=== PATIENT | male | born 1995 | race Caucasian/White ===

== ENCOUNTER 2020-01-14 11:18 | Emergency (ER) | payer BC ==
[~2020-01-14] VITALS: Ht 185.4 cm; Wt 100.0 kg
[2020-01-14 11:28] VITALS: BP 130/86; TEMP 97.9
[2020-01-14] MEDS ORDERED: CRUTCHES MC ×3 (12:12→13:20)
[2020-01-14 12:51] VITALS: PULSE 75
== END 2020-01-14 12:51 | disposition home or self-care (01) ==
LOC: COL.ER 11:18
DX: M23.92 Unspecified internal derangement of left knee (principal); F17.210 Nicotine dependence, cigarettes, uncomplicated; X50.1XXA Overexertion from prolonged static or awkward postures, initial encounter; Y92.009 Unspecified place in unspecified non-institutional (private) residence as the place of occurrence of the external cause

== ENCOUNTER 2022-02-15 12:37 | Emergency (ER) | payer BC ==
[~2022-02-15] VITALS: Ht 188 cm; Wt 106.8 kg
[~2022-02-15 12:37] MED LIST: CRUTCHES MC
[2022-02-15 13:19] VITALS: TEMP 98.2
[2022-02-15 13:44] LABS: COLLECTION METHOD CLEAN CATCH
[2022-02-15 13:48] LABS: BASO # 0.1 K/mm3 (0.0-0.2); BASO % 0.9 % (0.0-2.0); EOS # 0.2 K/mm3 (0.0-0.7); GRAN # 4.1 K/mm3 (1.4-6.5); GRAN % 53.1 % (42.2-75.2); HEMATOCRIT 42.6 % (42.0-52.0); HEMOGLOBIN 14.4 g/dl (13.5-18.0); LYMPH # 2.7 K/mm3 (1.2-3.4); LYMPH % 35.7 % (20.0-51.0); MEAN CELL VOLUME 85 fl (80.0-100.0); MEAN CORPUSCULAR HEMOGLOBIN 29 pg (27-31); MEAN CORPUSCULAR HGB CONC 34 g/dl (33.0-37.0); MEAN PLATELET VOLUME 9.7 fl (7.4-10.4); MONO # 0.6 K/mm3 (0.1-0.6); PLATELET COUNT 245 K/mm3 (130-400); RED BLOOD COUNT 5.01 M/mm3 (4.20-5.60)
[2022-02-15 13:50] LABS: PH 5 (5-8); SQUAMOUS EPITHELIAL 0-2 /hpf (0-10); URINE APPEARANCE Clear (CLEAR/HAZY); URINE BACTERIA None Seen /hpf (NONE SEEN); URINE BILIRUBIN Negative (NEGATIVE); URINE BLOOD Negative (NEGATIVE); URINE COLOR Yellow (YELLOW); URINE GLUCOSE Negative (NEGATIVE); URINE KETONE Negative (NEGATIVE); URINE LEUKOCYTE ESTERASE Negative (NEGATIVE); URINE NITRATE Negative (NEGATIVE); URINE PROTEIN(semi-quant) Negative (NEGATIVE); URINE RBC None Seen /hpf (0-2); URINE UROBILINOGEN Negative (NEGATIVE)
[2022-02-15 14:07] LABS: ALBUMIN 4.1 gm/dL (3.5-5.0); BILIRUBIN,TOTAL 0.4 mg/dL (0.2-1.2); C-REACTIVE PROTEIN 0.17 mg/dL (0.00-0.50); CALCIUM 9.1 mg/dL (8.4-10.2); CREATININE, serum 1.08 mg/dL (0.72-1.25); POTASSIUM 3.6 mmol/L (3.5-4.5); TOTAL PROTEIN 7.4 gm/dL (6.2-8.1)
[2022-02-15 14:58] VITALS: BP 118/76; PULSE 66
== END 2022-02-15 14:59 | disposition home or self-care (01) ==
LOC: COL.ER 12:37
PROVIDERS: Family Medicine
DX: K29.70 Gastritis, unspecified, without bleeding (principal)
CPT/HCPCS: C9113; J2405; J7120

== ENCOUNTER 2022-12-22 19:39 | Emergency (ER) | payer BC ==
[~2022-12-22] VITALS: Ht 182.9 cm; Wt 109.1 kg
[2022-12-22] MEDS ORDERED: ZOLOFT 100MG100 MG PO (19:58)
[2022-12-22] MEDS ORDERED: INDERAL 10MG10 MG PO (19:58)
[2022-12-22] MEDS ORDERED: NORFLEX 10100 MG/TAB PO (20:55)
[2022-12-22] MEDS ORDERED: PERCOCET 325 MG1 TA2 PO (20:55)
[2022-12-22] MEDS ORDERED: MEDROL 4MG DOSPA4 MG PO (20:55)
[2022-12-22 21:31] VITALS: BP 131/80; PULSE 80; TEMP 99.5
== END 2022-12-22 21:32 | disposition home or self-care (01) ==
LOC: COL.ER 19:39
DX: M54.16 Radiculopathy, lumbar region (principal)
CPT/HCPCS: J1885; J2360